=== PATIENT | male | born 1940 | race Caucasian/White ===

== ENCOUNTER → 2018-03-31 | Outpatient (CLI) | payer MEDICARE, OTHER | LOC: M RAD 14:34 | DX: M19.172 Post-traumatic osteoarthritis, left ankle and foot (principal); S82.832K Other fracture of upper and lower end of left fibula, subsequent encounter for closed fracture with nonunion; L98.491 Non-pressure chronic ulcer of skin of other sites limited to breakdown of skin | CPT/HCPCS: 73610 ==

== ENCOUNTER 2018-05-10 06:25 | Day surgery (SDC) | payer MEDICARE, BC ==
[~2018-05-10 06:25] MED LIST: LIDOCAINE 1% MDV 20ML VIAL SQ
[2018-05-10] MEDS: LR 1,000 ML IV ×2 (06:50)
[2018-05-10] MEDS ORDERED: MIDAZOLAM INJ 2 MG/2 ML VIAL (J2250) As Ordered ×4 (07:17→08:27)
[2018-05-10] MEDS ORDERED: PROPOFOL 200 MG/20 ML VIAL As Ordered ×2 (07:17)
[2018-05-10] MEDS ORDERED: fentaNYL 100 MCG/2 ML INJECTION (J3010) As Ordered ×2 (07:17)
[2018-05-10] MEDS ORDERED: LIDOCAINE 2% INJ 100 MG/5 ML SDV (FOR ANES.) As Ordered ×2 (07:17)
[2018-05-10] MEDS: ceFAZolin 1GM INJ (J0690 PER 500MG) As Ordered ×2 (07:56)
[2018-05-10] MEDS: LIDOCAINE 1% SDV INJ 30 ML VIAL As Ordered ×2 (07:57)
[2018-05-10] MEDS ORDERED: ONDANSETRON 4MG/2ML VIAL (J2405) As Ordered ×2 (08:00)
[2018-05-10] MEDS ORDERED: dexameTHASONE 4 MG/ML 1ML VIAL (J1100) As Ordered ×2 (08:00)
[2018-05-10] MEDS ORDERED: METOCLOPRAMIDE INJ 10MG/2ML VIAL (J2765) As Ordered ×2 (08:00)
[2018-05-10] MEDS ORDERED: KETAMINE HCL 200 MG/20 ML VIAL As Ordered ×2 (08:13)
[2018-05-10] MEDS ORDERED: AUGMENTIN 500 MG TAB PO ×2 (21:00)
== END 2018-05-10 11:45 | disposition home or self-care (01) ==
LOC: M SDC 06:25
DX: L97.321 Non-pressure chronic ulcer of left ankle limited to breakdown of skin (principal); I10 Essential (primary) hypertension; K21.9 Gastro-esophageal reflux disease without esophagitis; R06.02 Shortness of breath; M12.9 Arthropathy, unspecified; M62.81 Muscle weakness (generalized); J44.9 Chronic obstructive pulmonary disease, unspecified; Z88.1 Allergy status to other antibiotic agents; Z91.030 Bee allergy status; Z79.899 Other long term (current) drug therapy; Z79.82 Long term (current) use of aspirin; Z87.891 Personal history of nicotine dependence
CPT/HCPCS: 14040

== ENCOUNTER → 2018-11-24 | Outpatient (REF) | payer MEDICARE, BC ==
[~2018-11-24] MED LIST changes: +AMLO5TAB6 PO; +AMOX500T2 PO; +ASPI81TA85 PO; +BREO1INH3 INH; +CALC12504 PO; -LIDOCAINE 1% MDV 20ML VIAL SQ; +LOSA50TA88 PO; +METO50TA7 PO; +MULTCAP PO; +PREV1CAP PO; +SPIR1CAP INH; +VITA200015 PO
== END ==
LOC: M LAB REF 12:41
PROVIDERS: ATTEND Surgery
DX: T81.89XA Other complications of procedures, not elsewhere classified, initial encounter (principal)
CPT/HCPCS: 11044; 87070; 87077; 87186; 88304; 88311; G0463

== ENCOUNTER → 2018-12-01 | Outpatient (REF) | payer MEDICARE, BC ==
[~2018-12-01] MED LIST changes: +MELA3TAB42 PO; +TRAZ-252 PO
== END ==
LOC: M LAB REF 17:20
PROVIDERS: ATTEND Surgery
DX: C44.729 Squamous cell carcinoma of skin of left lower limb, including hip (principal); T81.30XA Disruption of wound, unspecified, initial encounter

== ENCOUNTER 2018-12-28 08:08 | Day surgery (SDC) | payer MEDICARE, BC ==
[~2018-12-28] VITALS: Ht 167.6 cm; Wt 74.3 kg
[~2018-12-28 08:08] MED LIST changes: -CALC12504 PO; +CALC500T61 PO; +LR 1,000 ML IV ONE; +ceFAZolin SOD 1 GM in D5W MINI-BAG PLUS 50 ML IV ONE
[2018-12-28] MEDS ORDERED: BUPIVACAINE LIPOSOME/PF 1.3% 20ML VIAL (13.3MG/ML)(EXPAREL)(C9290 PER1MG) As Ordered ONE (09:14)
[2018-12-28] MEDS ORDERED: BUPIVACAINE HCL 0.5% 30 ML VIAL As Ordered ONE (09:14)
[2018-12-28] MEDS ORDERED: PROPOFOL 200 MG/20 ML VIAL As Ordered ONE (10:13)
[2018-12-28] MEDS ORDERED: MIDAZOLAM INJ 2 MG/2 ML VIAL (J2250) As Ordered ONE (10:13)
--- NOTE | 2018-12-28 11:16 | POST-OPPD ---
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
[2018-12-28 11:42] VITALS: BP 125/69
--- NOTE | 2018-12-28 14:36 | RO ---
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 PROCEDURE: Excision of malignant lesion in left ankle chronic wound. SURGEON: Dr. Stella Caro. ANESTHESIA: Local with sedation. SPECIMEN: Left ankle wound frozen section, suture marking 12-o'clock and left ankle bone, permanent. ESTIMATED BLOOD LOSS: 3 mL. No replacement needed. FINDINGS: The measurements of the wound is 1.7 x 1.3 cm x depth 1.3 cm. DESCRIPTION OF PROCEDURE: This is a 78-year-old male who is well-known to our office. Patient has a chronic wound for years on his left ankle that was treated in wound care in a different institution. Patient was seen by us 6 months ago but he had complete wound re-excision with rotating flap closure. The flap has failed over time and he was treated as a wound-care patient in our office and then transferred to the [facility] wound care clinic. He had a slow healing process with remaining of wound about 1.5 x 1cm . The new biopsy was done and found there is some squamous cells in the wound and patient is now scheduled for formal excision with frozen and to establish clear margins. All the risks, benefits, and alternatives were discussed with the patient and his at length and were ready to proceed. On the day of surgery, after informed consent was confirmed, he was brought into the operating room, placed in the supine position. Preoperative antibiotics given. Sequentials placed on the right lower leg. He was prepped and draped in the usual sterile fashion. When we measured the wound, it is 1.7 x 1.3 cm with 1.3 cm depth, full thickness and bone exposed. The wound appears to be clean with clean granulation tissue. We measured out 4 mm margins on the wound. Local anesthetic, which was 0.5% Marcaine was infiltrated and given a surrounding block and at a later time, the regular Marcaine was 7 mL and Exparel was infiltrated through the procedure for a long-term anesthesia, another 8 mL as well. After the measurements were confirmed, we outlined 4 mm margines. We used 10 blade to completely excise the wound. 12 -o'clock position was marked with a suture and sent for frozen section. Hemostasis was obtained with pressure. There was good back-bleeding. We identified the bone which was the lateral malleolar. It is completely exposed with cancellous bone. We used small osteotome and the top-table of the bone was removed and sent to pathology. There was well back-bleeding from the bone as well. We were able to control it with pressure. The wound was irrigated with normal saline. After the margins were confirmed clean we applied EpiFix powder to the base of the bone and packed the wound with Adaptic and covered with a foam dressing. Patient tolerated the procedure well and was transferred to the recovery room in stable condition. There was normal pain. He is going to see us on Thursday. Instructions were given to the patient. DIGNA
== END 2018-12-28 11:59 | disposition home or self-care (01) ==
LOC: M SDC 08:08
PROVIDERS: ATTEND Plastic Surgery Surgery of the Hand
DX: C44.729 Squamous cell carcinoma of skin of left lower limb, including hip (principal); L98.491 Non-pressure chronic ulcer of skin of other sites limited to breakdown of skin; M86.8X7 Other osteomyelitis, ankle and foot; I10 Essential (primary) hypertension; J44.9 Chronic obstructive pulmonary disease, unspecified; G47.9 Sleep disorder, unspecified; K21.9 Gastro-esophageal reflux disease without esophagitis; R06.02 Shortness of breath; M12.9 Arthropathy, unspecified; I69.998 Other sequelae following unspecified cerebrovascular disease; Z88.1 Allergy status to other antibiotic agents; Z88.8 Allergy status to other drugs, medicaments and biological substances; Z91.018 Allergy to other foods; Z91.030 Bee allergy status; Z79.899 Other long term (current) drug therapy; Z79.82 Long term (current) use of aspirin
CPT/HCPCS: 11402; 20240; 88304; 88305; 88311; 88331; C9290; J0690; J2250; Q4186

== ENCOUNTER → 2019-01-06 | Outpatient (REF) | payer MEDICARE, BC ==
[~2019-01-06] MED LIST changes: -LR 1,000 ML IV ONE; -ceFAZolin SOD 1 GM in D5W MINI-BAG PLUS 50 ML IV ONE
== END ==
LOC: M LAB REF 12:42
PROVIDERS: ATTEND Plastic Surgery Surgery of the Hand
DX: L98.491 Non-pressure chronic ulcer of skin of other sites limited to breakdown of skin (principal); C44.729 Squamous cell carcinoma of skin of left lower limb, including hip

== ENCOUNTER → 2019-03-02 | Outpatient (REF) | payer MEDICARE, BC ==
[~2019-03-02] MED LIST changes: -MELA3TAB42 PO; +MELA3TAB59 PO
== END ==
LOC: M LAB REF 17:30
PROVIDERS: ATTEND Physician Assistant
DX: T81.30XA Disruption of wound, unspecified, initial encounter (principal)

== ENCOUNTER → 2019-03-02 | Outpatient (REF) | payer MEDICARE, BC | LOC: M SFHCPLAZ 18:46 | PROVIDERS: ATTEND Physician Assistant | DX: M86.10 Other acute osteomyelitis, unspecified site (principal); T81.30XA Disruption of wound, unspecified, initial encounter; L97.324 Non-pressure chronic ulcer of left ankle with necrosis of bone; T81.89XD Other complications of procedures, not elsewhere classified, subsequent encounter | CPT/HCPCS: 15271; 87070; 87077; 87186; 88304; Q4196 ==

== ENCOUNTER → 2019-06-22 | Outpatient (REF) | payer MEDICARE, BC | LOC: M SFHCPLAZ 19:14 | PROVIDERS: ATTEND Surgery | DX: T81.30XA Disruption of wound, unspecified, initial encounter (principal) | CPT/HCPCS: 15271; 87070; 87077; 87186; Q4186 ==

== ENCOUNTER → 2019-06-29 | Outpatient (REF) | payer MEDICARE, BC | LOC: M SFHCPLAZ 18:06 | PROVIDERS: ATTEND Surgery | DX: L97.324 Non-pressure chronic ulcer of left ankle with necrosis of bone (principal) | CPT/HCPCS: 15271; 88304; Q4186 ==

== ENCOUNTER → 2019-07-20 | Outpatient (CLI) | payer MEDICARE, BC ==
--- NOTE | 2019-07-20 16:56 | REP ---
Unilateral left lower extremity arterial Doppler ultrasound: History: Chronic left leg ulcer. Findings: Ankle brachial index is normal at 1.14. Normal triphasic arterial wave forms are noted throughout the left lower extremity arteries. Mild to moderate plaquing is seen. No high-grade stenosis is seen. Velocity chart left lower extremity arteries: CF A 108 cm/S Profunda 75 Proximal SFA 88 Mid SFA 75 Distal SFA 55 Popliteal 58 Proximal AT A 66 Tibioperoneal trunk 64 Proximal SKIVER HEEL TAP 75 Distal SKIVER HEEL TAP 74 Distal AT A 61 Electronically Signed by Elvin Bender MD 07/20/2019 04:48 P
== END ==
LOC: M RAD 15:18
PROVIDERS: ATTEND Surgery
DX: L97.324 Non-pressure chronic ulcer of left ankle with necrosis of bone (principal)

== ENCOUNTER → 2019-09-08 | Outpatient (REF) | payer MEDICARE, BC | LOC: M LAB REF 09-07 09:19 | PROVIDERS: ATTEND Surgery | DX: T81.30XA Disruption of wound, unspecified, initial encounter (principal) ==

== ENCOUNTER → 2019-09-13 | Outpatient (REF) | payer MEDICARE, BC ==
[2019-09-13 17:45] LABS: BASO # 0.1 10^3/uL (0.0-0.2); EOS # 0.3 10^3/uL (0.0-0.5); EOS % 2.9 % (0.0-3.0); HEMATOCRIT 40.4 % (42.0-52.0); HEMOGLOBIN 13.3 g/dl (13.5-17.5); LYMPH # 1.4 10^3/uL (1.5-5.0); LYMPH % 14.6 % (24.0-44.0); MEAN CORPUSCULAR HEMOGLOBIN 32.8 pg (27.0-33.0); MEAN CORPUSCULAR HGB CONC 32.9 g/dl (32.0-36.5); MEAN CORPUSCULAR VOLUME 99.5 fl (80.0-96.0); MONO # 1.3 10^3/uL (0.0-0.8); MONO % 13.1 % (0.0-5.0); NEUTROPHILS # 6.5 10^3/uL (1.5-8.5); NEUTROPHILS % 67.8 % (36.0-66.0); PLATELET COUNT, AUTOMATED 263 10^3/uL (150-450); RED BLOOD COUNT 4.06 10^6/uL (4.30-6.10); WHITE BLOOD COUNT 9.6 10^3/uL (4.0-10.0)
[2019-09-13 18:08] LABS: ALBUMIN 3.9 GM/DL (3.2-5.2); ALT/SGPT 31 U/L (12-78); BILIRUBIN,TOTAL 0.9 MG/DL (0.2-1.0); BLOOD UREA NITROGEN 15 MG/DL (7-18); C REACTIVE PROTEIN QUANTITATIV < 0.30 MG/DL (0.00-0.30); CALCIUM LEVEL 9.5 MG/DL (8.8-10.2); CARBON DIOXIDE LEVEL 27 MEQ/L (21-32); CHLORIDE LEVEL 102 MEQ/L (98-107); CREATININE FOR GFR 1.11 MG/DL (0.70-1.30); GLOMERULAR FILTRATION RATE > 60.0 (>42); GLUCOSE, FASTING 86 MG/DL (70-100); SODIUM LEVEL 136 MEQ/L (136-145); TOTAL PROTEIN 7.4 GM/DL (6.4-8.2)
[2019-09-13 19:09] LABS: ERYTHROCYTE SEDIMENTATION RATE 13 mm/hr (0-20)
== END ==
LOC: M SFHCPLAZ 12:47
PROVIDERS: ATTEND Internal Medicine Infectious Disease
DX: M86.472 Chronic osteomyelitis with draining sinus, left ankle and foot (principal)
CPT/HCPCS: 80053; 85025; 85652; 86140; G0463

== ENCOUNTER → 2020-11-14 | Outpatient (REF) | payer MEDICARE, BC ==
[~2020-11-14] MED LIST changes: +AMLO1TAB24 PO; -AMLO5TAB6 PO; -ASPI81TA85 PO; +ASPI81TA86 PO; +MELA3TAB29 PO; -MELA3TAB59 PO
== END ==
LOC: M LAB REF 16:23
PROVIDERS: ATTEND Surgery
DX: C44.729 Squamous cell carcinoma of skin of left lower limb, including hip (principal); L97.324 Non-pressure chronic ulcer of left ankle with necrosis of bone

== ENCOUNTER → 2020-12-20 | Outpatient (REF) | payer MEDICARE, BC | LOC: M LAB REF 15:54 | PROVIDERS: ATTEND Surgery | DX: L97.822 Non-pressure chronic ulcer of other part of left lower leg with fat layer exposed (principal); T81.30XA Disruption of wound, unspecified, initial encounter; L97.324 Non-pressure chronic ulcer of left ankle with necrosis of bone; M86.472 Chronic osteomyelitis with draining sinus, left ankle and foot; L98.8 Other specified disorders of the skin and subcutaneous tissue ==

== ENCOUNTER 2021-02-05 08:53 | Day surgery (SDC) | payer MEDICARE, BC ==
[~2021-02-05] VITALS: Ht 170.2 cm; Wt 71.2 kg
[~2021-02-05 08:53] MED LIST changes: +LIDOCAINE 1% MDV 20ML VIAL SQ PRN; +LR 1,000 ML IV ONE; +NO ITAB PO; +VENTAER INH; +VITA1CAP25 PO
[2021-02-05] MEDS ORDERED: fentaNYL 250 MCG/5 ML INJECTION (J3010) As Ordered ONE (09:14)
[2021-02-05] MEDS ORDERED: propofoL 200 MG/20 ML VIAL As Ordered ONE (09:14)
[2021-02-05] MEDS ORDERED: MIDAZOLAM INJ 2MG/2ML VIAL (J2250 PER 1MG) As Ordered ONE (09:14)
[2021-02-05] MEDS ORDERED: LIDOCAINE 2% 100MG/5ML SDV (FOR ANES.) As Ordered ONE (09:14)
[2021-02-05] MEDS ORDERED: ONDANSETRON 4MG/2ML VIAL As Ordered ONE (09:14)
[2021-02-05] MEDS ORDERED: dexameTHASONE 4 MG/ML 1ML VIAL (J1100 PER 1MG) As Ordered ONE (09:14)
[2021-02-05] MEDS ORDERED: CLINDAMYCIN 300 MG/50 ML PREMIX BAG As Ordered ONE (10:15)
[2021-02-05] MEDS ORDERED: CLINDAMYCIN 600 MG/50 ML PREMIX BAG As Ordered ONE (10:23)
[2021-02-05] MEDS ORDERED: BUPIVACAINE LIPOSOME/PF 1.3% 20ML VIAL (13.3MG/ML)(EXPAREL)(C9290 PER1MG) As Ordered ONE (10:48)
[2021-02-05] MEDS ORDERED: GENTAMICIN SULF 80MG/2ML VIAL As Ordered ONE (10:58)
[2021-02-05] MEDS ORDERED: ACETAMINOPHEN 1000MG 100ML IV BTL (OFIRMEV) (J0131 PER 10MG) As Ordered ONE (11:01)
[2021-02-05] MEDS ORDERED: ePHEDrine SULFATE 25 MG/5 ML(5MG/ML) SYRINGE As Ordered ONE (11:04)
--- NOTE | 2021-02-05 12:06 | ROOPDOC ---
[facility] Report Of Operation Report of Operation DATE OF PROCEDURE: 02/05/21 PREOPERATIVE DIAGNOSIS: Left lateral ankle malignant lesion POSTOPERATIVE DIAGNOSIS: same PROCEDURE: Excision of malignant lesion left lateral ankle. SURGEON: Dr Franco CARDIOLOGY NURSE: none ANESTHESIA: general ESTIMATED BLOOD LOSS: 50 cc FINDINGS: left lateral ankle lesion 5.5x4cm, satellite lesions cluster 3.5x5cm SPECIMENS: Left lateral ankle lesion suture marking 12 o'clock. Medial satellite lesion suture at 12 o'clock, Lateral satellite lesion suture at 12 o'clock. Frozen section: deep margin, 2 o'clock margin COMPLICATIONS: none REPLACED: none DRAINS: none POSTOPERATIVE CONDITION: stable DESCRIPTION OF PROCEDURE: This is a 80 year-old male with pink irregular lesion which extends from his chronic left lateral ankle wound superiorly. Patient has confirmed biopsy of lesion being squamous cell. He also has 3 satellite lesions close to the original large lesion. He is scheduled to have the malignant lesion removed. Risks, benefits, and alternatives discussed with the patient. He is ready to proceed. After obtaining informed consent patient brought into the operating room, placed in supine position, perioperative antibiotics given, sequential stockings placed on the right lower calf, general anesthesia induced. He was prepped and draped in the usual sterile fashion. The lesion was remeasured in its 4.5 x 5 cm which includes the old chronic wound. We outlined 6 mm margins and satellite lesions were also outlined separately with 5 mm margins. Incision carried out in elliptical fashion around the larger lesion full-thickness. The lesion and the wound were completely excised to a subcuticular layer which appears to be free of involvement of the mass. Hemostasis obtained using electrocautery. Deep margin and 2:00 margin were taken separately and sent to pathology. Both proven to be negative for tumor. Satellite lesions were excised using 10 blade knife an elliptical fashion with 5 mm margins as well and also sent to pathology as permanent section. All the lesions were marked with single suture at 12:00 for identific ation. Wound irrigated with normal saline solution. Xeroform and bulky dressing followed by Kerlix and Chip were used. Patient extubated in operating room, tolerated procedure well, and transferred to recovery room in stable condition. ELENA FRANCO DO Feb 05, 2021 12:06
--- NOTE | 2021-02-05 12:06 | POST-OPPD ---
Postoperative Procedure Note Date Of Procedure: Feb 05, 2021 PREOPERATIVE DIAGNOSIS: Left lateral ankle malignant lesion POSTOPERATIVE DIAGNOSIS: same PROCEDURE: Excision of malignant lesion left lateral ankle. SURGEON: Dr Franco RN AMBULATORY: none ANESTHESIA: general ESTIMATED BLOOD LOSS: 50 cc FINDINGS: left lateral ankle lesion 5.5x4cm, satellite lesions cluster 3.5x5cm SPECIMENS: Left lateral ankle lesion suture marking 12 o'clock. Medial satellite lesion suture at 12 o'clock, Lateral satellite lesion suture at 12 o'clock. Frozen section: deep margin, 2 o'clock margin COMPLICATIONS: none REPLACED: none DRAINS: none POSTOPERATIVE CONDITION: stable ELENA FRANCO DO Feb 05, 2021 12:06
[2021-02-05] MEDS ORDERED: PHENYLephrine 500MCG 5ML (100MCG/ML) SYRINGE As Ordered ONE (12:10)
[2021-02-05] MEDS ORDERED: TRAM50TA2 PO (12:15)
[2021-02-05] MEDS ORDERED: oxyCODONE 5MG TAB PO PRN (12:15)
[2021-02-05] MEDS ORDERED: fentaNYL 100 MCG/2 ML INJECTION (J3010) IV PRN (12:15)
[2021-02-05] MEDS ORDERED: LR 1,000 ML IV SCH (12:15)
[2021-02-05] MEDS ORDERED: ONDANSETRON 4MG/2ML VIAL IV PRN (12:15)
[2021-02-05 14:55] VITALS: BP 110/69
== END 2021-02-05 15:01 | disposition home or self-care (01) ==
LOC: M SDC 08:53
PROVIDERS: ATTEND Plastic Surgery Surgery of the Hand
DX: C44.729 Squamous cell carcinoma of skin of left lower limb, including hip (principal); L11.9 Acantholytic disorder, unspecified; I10 Essential (primary) hypertension; E78.00 Pure hypercholesterolemia, unspecified; K21.9 Gastro-esophageal reflux disease without esophagitis; S91.002A Unspecified open wound, left ankle, initial encounter; X58.XXXA Exposure to other specified factors, initial encounter; Y92.89 Other specified places as the place of occurrence of the external cause; M86.60 Other chronic osteomyelitis, unspecified site; Z86.73 Personal history of transient ischemic attack (TIA), and cerebral infarction without residual deficits; J44.9 Chronic obstructive pulmonary disease, unspecified; Z88.8 Allergy status to other drugs, medicaments and biological substances; Z91.030 Bee allergy status; Z91.048 Other nonmedicinal substance allergy status; Z91.018 Allergy to other foods; Z79.899 Other long term (current) drug therapy; Z79.51 Long term (current) use of inhaled steroids
CPT/HCPCS: 11626; 88305; 88312; 88331; C9290; J0131; J1100; J1580; J2250; J2370; J2405; J3010

== ENCOUNTER → 2022-04-10 | Outpatient (CLI) | payer MEDICARE, BC ==
[~2022-04-10] MED LIST changes: -LIDOCAINE 1% MDV 20ML VIAL SQ PRN; +LOSA50TA28 PO; -LOSA50TA88 PO; -LR 1,000 ML IV ONE; +TRAM50TA2 PO
== END ==
LOC: M RADPRO 10:49
PROVIDERS: ATTEND Internal Medicine Pulmonary Disease
DX: J44.9 Chronic obstructive pulmonary disease, unspecified (principal)

== ENCOUNTER 2023-06-09 12:36 | Observation (INO) | payer MEDICARE, BC ==
[~2023-06-09] VITALS: Ht 177.8 cm; Wt 69.7 kg
[2023-06-09] MEDS ORDERED: dexAMETHasone 20MG/5ML VIAL IV ONE (13:35)
[2023-06-09] MEDS ORDERED: ACETAMINOPHEN TAB 650MG DOSE (2X325MG) PO ONE (13:45)
[2023-06-09] MEDS: IPRATROPIUM 0.5MG/ALBUTEROL 2.5MG INH SOL UD 3ML (DUONEB) NEB PRN ×3 (13:58→15:04)
[2023-06-09 14:09] LABS: BASO # 0.1 10^3/uL (0.0-0.2); BASO % 0.9 % (0.0-1.0); EOS # 0.2 10^3/uL (0.0-0.5); EOS % 2.1 % (0.0-3.0); HEMATOCRIT 40.4 % (42.0-52.0); HEMOGLOBIN 13.4 g/dl (13.5-17.5); LYMPH # 0.9 10^3/uL (1.5-5.0); LYMPH % 10.7 % (24.0-44.0); MEAN CORPUSCULAR HEMOGLOBIN 30.1 pg (27.0-33.0); MEAN CORPUSCULAR HGB CONC 33.2 g/dl (32.0-36.5); MEAN CORPUSCULAR VOLUME 90.8 fl (80.0-96.0); NEUTROPHILS # 5.8 10^3/uL (1.5-8.5); NEUTROPHILS % 72.9 % (36.0-66.0); PLATELET COUNT, AUTOMATED 199 10^3/uL (150-450); RED BLOOD COUNT 4.45 10^6/uL (4.30-6.10); WHITE BLOOD COUNT 7.9 10^3/uL (4.0-10.0)
[2023-06-09 14:12] LABS: ABG BASE EXCESS 1.6 (-2.0-2.0); ABG HCO3 24.7 MMOL/L (22.0-26.0); ABG O2 SATURATION 95.5 % (95.0-99.0); ABG PARTIAL PRESSURE CO2 34.3 mmHg (35.0-45.0); ABG PARTIAL PRESSURE O2 71.5 mmHg (75.0-100.0); ABG STANDARD HCO3 25.9 MMOL/L. (22.0-26.0); ABG TOTAL CO2 25.8 MMOL/L (23.0-31.0); ABG pH (ARTERIAL) 7.476 UNITS (7.350-7.450)
[2023-06-09 14:38] LABS: ALBUMIN 3.8 G/DL (3.2-5.2); BILIRUBIN,DIRECT 0.4 MG/DL (<0.4); CALCIUM LEVEL 9.3 MG/DL (8.3-10.6); CK-MB VALUE MASS 3.4 NG/ML (<3.6); CREATININE FOR GFR 1.36 MG/DL (0.70-1.30); GLOMERULAR FILTRATION RATE 53.5 (>35); MB/CK RELATIVE INDEX 0.91 (< OR =4); POTASSIUM SERUM 4.2 MMOL/L (3.5-5.1); TOTAL PROTEIN 7.2 G/DL (5.7-8.2)
[2023-06-09] MEDS ORDERED: OSELTAMIVIR PHOSPHATE 75 MG CAP (TAMIFLU) PO ONE (15:25)
[2023-06-09] MEDS ORDERED: OSEL75CA PO (16:09)
[2023-06-09] MEDS ORDERED: PRED10TA2 PO (16:09)
[2023-06-09] MEDS ORDERED: IBUPROFEN 600MG TAB PO ONE (17:25)
[2023-06-09] MEDS ORDERED: ACETAMINOPHEN TAB 650MG DOSE (2X325MG) PO PRN (17:25)
[2023-06-09] MEDS ORDERED: NS 500 ML IV ONE (17:25)
[2023-06-09] MEDS ORDERED: MED REC IN PROGRESS XX SCH (17:35)
[2023-06-09 17:55] LABS: PROCALCITONIN 0.05 ng/ml
[2023-06-09] MEDS ORDERED: METO1TAB87 PO (18:02)
[2023-06-09] MEDS ORDERED: LOSA25TA13 PO (18:02)
[2023-06-09] MEDS ORDERED: IPRA0.00 INH (18:02)
[2023-06-09] MEDS ORDERED: ACET32TAB PO (18:02)
[2023-06-09] MEDS ORDERED: TUMS500C PO (18:02)
[2023-06-09] MEDS ORDERED: FLOM0.4C39 PO (18:02)
[2023-06-09] MEDS ORDERED: BUDE0.5S6 INH (18:02)
[2023-06-09] MEDS ORDERED: HOME MED LIST COMPLETE! XX SCH (18:05)
[2023-06-09] MEDS ORDERED: CALCIUM CARBONATE 500 MG CHEW U/D PO PRN (18:15)
[2023-06-09] MEDS: IPRATROPIUM 0.5MG/ALBUTEROL 2.5MG INH SOL UD 3ML (DUONEB) NEB SCH (19:11)
[2023-06-09] MEDS ORDERED: TAMSULOSIN 0.4 MG CAP PO SCH (21:00)
[2023-06-09] MEDS ORDERED: traZODone 50 MG TAB PO SCH (21:00)
[2023-06-10 00:27] VITALS: BP 124/72; TEMP 96.4; O2SAT 95
[2023-06-10] MEDS: HEPARIN SOD (PORCINE) 5000UNITS/ML 1ML VIAL/SYRINGE SC SCH ×3 (01:02→14:50)
[2023-06-10] MEDS: METOPROLOL TART 25 MG TABLET PO SCH ×2 (01:02→07:59)
[2023-06-10] MEDS: IPRATROPIUM 0.5MG/ALBUTEROL 2.5MG INH SOL UD 3ML (DUONEB) NEB SCH ×3 (02:06→13:28)
[2023-06-10 05:47] VITALS: BP 116/70; TEMP 97.9; O2SAT 97
[2023-06-10 07:59] VITALS: BP 116/70
[2023-06-10] MEDS ORDERED: OSELTAMIVIR PHOSPHATE 30MG CAPSULE PO SCH (09:00)
[2023-06-10] MEDS ORDERED: OSEL30CA PO (11:10)
[2023-06-10] MEDS ORDERED: IPRA0.00 NEB (11:10)
== END 2023-06-10 14:45 | disposition other institution (70) ==
LOC: M ED 12:36 → M ED INP 17:24 → ENRESERV 20:57 → M MS5PR 06-10 00:19
PROVIDERS: ADMIT Student in an Organized Health Care Education/Training Program; ATTEND Student in an Organized Health Care Education/Training Program
DX: J09.X2 Influenza due to identified novel influenza A virus with other respiratory manifestations (principal); J96.01 Acute respiratory failure with hypoxia; N18.30 Chronic kidney disease, stage 3 unspecified; I12.9 Hypertensive chronic kidney disease with stage 1 through stage 4 chronic kidney disease, or unspecified chronic kidney disease; J44.9 Chronic obstructive pulmonary disease, unspecified; S91.002D Unspecified open wound, left ankle, subsequent encounter; X58.XXXD Exposure to other specified factors, subsequent encounter; F03.90 Unspecified dementia, unspecified severity, without behavioral disturbance, psychotic disturbance, mood disturbance, and anxiety; R06.02 Shortness of breath; G47.00 Insomnia, unspecified; Z86.69 Personal history of other diseases of the nervous system and sense organs; Z87.891 Personal history of nicotine dependence; Z80.9 Family history of malignant neoplasm, unspecified; Z88.8 Allergy status to other drugs, medicaments and biological substances; Z91.030 Bee allergy status; Z91.018 Allergy to other foods; Z91.038 Other insect allergy status; Z79.899 Other long term (current) drug therapy
CPT/HCPCS: 11042; 36600; 71045; 80048; 80076; 82550; 82553; 82803; 83605; 83880; 84145; 84484; 85025; 87040; 87486; 87581; 87633; 87798; 93005; 93041; 94640; 94760; 96372; 96374; 99285; G0378; J1100

== ENCOUNTER → 2023-12-16 | Outpatient (CLI) | payer BC, MEDICARE ==
[~2023-12-16] MED LIST changes: +ACET32TAB PO; +BUDE0.5S6 INH; +FLOM0.4C39 PO; +IPRA0.00 INH; +IPRA0.00 NEB; +LOSA25TA13 PO; +METO1TAB87 PO; +OSEL30CA PO; +OSEL75CA PO; +PRED10TA2 PO; +TUMS500C PO
== END ==
LOC: M IRPRO 08:17
PROVIDERS: ATTEND Internal Medicine
DX: M86.9 Osteomyelitis, unspecified (principal); Z79.2 Long term (current) use of antibiotics

== ENCOUNTER → 2024-10-19 | Outpatient (CLI) | payer BC, MEDICARE, SELFPAY ==
[~2024-10-19] MED LIST changes: +ACET-897 PO; +BANO2CRE TOP; +BREO1INH PO; +CIME200T40 PO; +DAKI0.12 TOP; -FLOM0.4C39 PO; +METO1TAB7 PO; +TAMS-18 PO
== END ==
LOC: M ONCR 13:34
PROVIDERS: ATTEND General Practice
DX: C44.729 Squamous cell carcinoma of skin of left lower limb, including hip (principal); L08.9 Local infection of the skin and subcutaneous tissue, unspecified; L85.9 Epidermal thickening, unspecified; Z95.5 Presence of coronary angioplasty implant and graft; Z91.018 Allergy to other foods; Z91.030 Bee allergy status; Z88.8 Allergy status to other drugs, medicaments and biological substances; Z91.038 Other insect allergy status; Z79.51 Long term (current) use of inhaled steroids; Z79.899 Other long term (current) drug therapy
CPT/HCPCS: 11102; 88305; G0463

== ENCOUNTER 2024-11-30 13:01 | Outpatient (RCR) | payer MEDICARE ==
[~2024-11-30 13:01] MED LIST changes: +DAKI0.12 EX; +JUVEPOW4 PO
== END 2024-12-12 ==
LOC: M ONCR 13:01
PROVIDERS: ATTEND General Practice
DX: Z51.0 Encounter for antineoplastic radiation therapy (principal); C44.729 Squamous cell carcinoma of skin of left lower limb, including hip

== ENCOUNTER 2024-12-14 09:54 | Outpatient (RCR) | payer MEDICARE ==
[2024-12-14] MEDS ORDERED: OXYC1TAB23 PO (14:00)
[2024-12-15] MEDS ORDERED: OXYC1TAB23 PO ×2 (10:52→11:48)
[2024-12-19] MEDS ORDERED: OXYC1TAB23 PO (08:34)
== END 2025-01-12 ==
LOC: M ONCR 09:54
PROVIDERS: ATTEND General Practice
DX: Z51.0 Encounter for antineoplastic radiation therapy (principal); C44.729 Squamous cell carcinoma of skin of left lower limb, including hip